=== PATIENT | male | born 1965 | race Two or more races ===

== ENCOUNTER 2019-04-08 16:07 | Emergency (ER) | payer OTHER ==
[~2019-04-08] VITALS: Ht 172.7 cm; Wt 90.0 kg
[2019-04-08] MEDS ORDERED: ASPI-1158 PO (16:22)
[2019-04-08] MEDS ORDERED: AMLO2.5T45 PO (16:22)
[2019-04-08] MEDS ORDERED: SIMV5TAB58 PO (16:22)
[2019-04-08] MEDS ORDERED: ONDANSETRON HCL 4MG/2ML INJ IV STA (16:43)
[2019-04-08] MEDS ORDERED: MORPHINE SULFATE 4 MG/ML CPJ (NOT FOR IM USE) IV STA (16:43)
[2019-04-08] MEDS ORDERED: KETOROLAC 30MG/ML VIAL IV STA (16:43)
[2019-04-08] MEDS ORDERED: SODIUM CHLORIDE 0.9% 1,000 ML IV ONE ×3 (16:43→17:49)
[2019-04-08 16:59] LABS: BASOPHILS % 0.8 % (0.0-2.0); EOSINOPHILS % 0.8 % (0.0-5.0); HEMATOCRIT. 45.1 % (42.0-52.0); HEMOGLOBIN. 15.5 g/dL (14.0-18.0); MEAN CORPUSCULAR HEMOGLOBIN 32.5 pg (28.0-32.0); MEAN CORPUSCULAR VOLUME 94.5 fL (80.0-94.0); MEAN PLATELET VOLUME 8.8 fl (7.4-10.4); MONOCYTES % 7.5 % (2.0-8.0); NEUTROPHILS % 47.9 % (40.0-76.0); PLATELET 181 x1000/uL (130-400); RED BLOOD CELL COUNT 4.77 mill/uL (4.7-6.1); RED CELL DISTRIBUTION WIDTH 14.6 % (11.6-14.6)
[2019-04-08 17:03] LABS: CHLORIDE 107 mEq/L (98-107)
[2019-04-08 17:04] LABS: PROTHROMBIN TIME 10.6 sec (9.6-11.0)
[2019-04-08] MEDS ORDERED: MORPHINE SULFATE 10 MG/ML CPJ IV ONE (17:45)
[2019-04-08] MEDS ORDERED: ONDANSETRON HCL 4MG/2ML INJ IV ONE (17:45)
[2019-04-08 18:08] LABS: CLARITY URINE CLEAR (CLEAR); COLOR URINE YELLOW (YELLOW); KETONES URINE TRACE (NEGATIVE); LEUKOCYTE ESTERASE URINE TRACE (NEGATIVE); NITRITE URINE NEGATIVE (NEGATIVE); OCCULT BLOOD URINE 3+ (NEGATIVE); PROTEIN URINE NEGATIVE (NEGATIVE); SPECIFIC GRAVITY URINE 1.019 (1.005-1.030); UROBILINOGEN URINE 0.2 E.U./dL (0.2-1.0)
[2019-04-08] MEDS ORDERED: HYDROCODONE/ACETAMINOPHEN 5/325MG TABLET PO ONE (19:15)
[2019-04-08 19:50] VITALS: BP 128/69
== END 2019-04-08 20:57 | disposition home or self-care (01) ==
LOC: ER 16:07
DX: E86.0 Dehydration (principal); Z79.899 Other long term (current) drug therapy; Z88.8 Allergy status to other drugs, medicaments and biological substances; I10 Essential (primary) hypertension; Z87.442 Personal history of urinary calculi; Z86.73 Personal history of transient ischemic attack (TIA), and cerebral infarction without residual deficits
CPT/HCPCS: 36415; 74176; 80053; 81003; 83690; 85025; 85610; 87086; 96361; 96374; 96375; 99284; J1885; J2270; J2405; J7030